=== PATIENT | male | born 1955 | race Hispanic/Latino ===

== ENCOUNTER 2019-05-15 10:23 | Outpatient (CLI) | payer OTHER ==
--- NOTE | 2019-05-15 12:00 | Cat Scan Report ---
CT CHEST WITHOUT CONTRAST INDICATION / CLINICAL INFORMATION: R91.1)Solitary pulmonary nodule.. TECHNIQUE: Axial CT images were obtained through the chest without contrast. Sagittal and coronal reformatted im ages. All CT scans at this location are performed using CT dose reduction for ALARA by means of autom ated exposure control. COMPARISON: CT calcium scoring dated 08/10/2018 FINDINGS: HEART: No significant abnormality. THORACIC AORTA: No significant abnormality. MEDIASTINUM and JESSENIA: No significant abnormality. LUNGS: No acute air space or interstitial disease. 2 calcified granulomas are identified posterior l eft lower lobe measuring up to 5 mm. No suspicious pulmonary nodule or mass. PLEURA: No significant pleural effusion. No pneumothorax. SKELETAL SYSTEM: No significant abnormality. UPPER ABDOMEN: No significant abnormality. ADDITIONAL FINDINGS: None. IMPRESSION: No significant abnormality. Tiny calcified granulomas in the left lower lobe. No suspicious pulmonar y nodule. Signer Name: Elías Crabtree Jr, MD Signed: 05/15/2019 11:56 AM Workstation Name: [id number]
== END 2019-05-15 10:24 | disposition home or self-care (01) ==
LOC: CT 10:23
PROVIDERS: ATTEND Family Medicine
DX: R91.1 Solitary pulmonary nodule (principal)
CPT/HCPCS: 71250